=== PATIENT | female | born 1985 | race Caucasian/White ===

== ENCOUNTER 2018-02-03 18:18 | Inpatient (IN) | payer OTHER ==
[2018-02-03] MEDS ORDERED: MISOPROSTOL 200 MCG TAB PR PRN (18:27)
[2018-02-03] MEDS ORDERED: IBUPROFEN 600 MG TAB PO PRN (18:27)
[2018-02-03] MEDS ORDERED: OXYTOCIN/RINGERS LACTATE 1,000 ML IV PRN (18:27)
[2018-02-03] MEDS ORDERED: TERBUTALINE SULFATE 1 MG/ML VIAL IV PRN (18:27)
[2018-02-03] MEDS ORDERED: LR 1,000 ML IV PRN (18:27)
[2018-02-03] MEDS ORDERED: LIDOCAINE 1% 300 MG/30 ML SDV SC PRN (18:27)
[2018-02-03] MEDS ORDERED: EPSOM SALT 454 GM TP PRN (18:27)
[2018-02-03] MEDS ORDERED: OLIVE OIL 118 ML BTL MISC PRN (18:27)
[2018-02-03] MEDS ORDERED: OXYTOCIN 10 UNIT/ML VIAL ONE (19:29)
[2018-02-03] MEDS ORDERED: MISOPROSTOL 200 MCG TAB ONE (19:29)
[2018-02-03] MEDS ORDERED: OLIVE OIL 118 ML BTL ONE (19:29)
[2018-02-03] MEDS ORDERED: AMMONIA AROMATIC 1 EACH AMP IH ONE (19:29)
[2018-02-03] MEDS ORDERED: TERBUTALINE SULFATE 1 MG/ML VIAL ONE (19:29)
[2018-02-03] MEDS ORDERED: LIDOCAINE 1% 300 MG/30 ML SDV ONE (19:29)
--- NOTE | 2018-02-03 19:40 | PDGENHP ---
History and Physical History and Physical: Care: [facility] HPI: Patient is a 32 yo G 1 P 0 @ 40 weeks that presents to L&D with complaints of uterine contractions since yesterday getting much stronger this evening at 1700 EDC: 02-03-2018 which is based on LMP: 04-29-17 which is known and consistent with Ultrasound at 8 weeks. Her has been uncomplicated Review of Systems: Constitutional: Denies any fever, chills, or fatigue HEENT: denies any visual changes, difficulty swallowing, hearing loss Cardiovascular: Denies any chest pain, palpitations, leg swelling Respiratory: denies any cough, wheezing, or shortness of breathe GI: Denies any nausea, vomiting, diarrhea, constipation : denies any dysuria, urgency, frequency, vaginal bleeding Musculoskeletal: denies any muscle or bone pain Skin: denies any rashes Neuro: denies any headache, seizures, lightheadedness, dizziness, or loss of consciousness Psychiatric: denies any depression, anxiety, or SI/HI thoughts HISTORY: Previous OB history: none Past medical history: noncontributory Past surgical history: wisdom teeth Social: Denies any alcohol, tobacco, or drug use. Family history: Not relevant Medications: PNV Allergies (list reaction): NKDA LABS: Rh:O+ ABS: Neg Rubella: Immune HbsAg: NR HIV: NR VDRL: NR 1hr: WNL GC: Neg Chlamydia: Neg Pap: Normal GBS: Neg BMI: (prepreg)27 PHYSICAL EXAM: Constitutional: WN, A&Ox3 HEENT: normocephalic atraumatic, supple Skin: Warm, dry, intact Heart: RRR, no murmur Chest: CTA-B Abdomen: Soft, nontender, gravid SVE: 6/100/-2; BBOW Extremities: +1 edema, negative homans sign Neuro: grossly normal Psych: normal affect assessment: FHT baseline 150's +accels, no decels, moderate variability Contractions: q 3 to 5 minutes Assessment: 1) 32yo G 1 P 0 with IUP@ 40 2) active labor 3) GBS neg 4) Cat 1 FHR tracing Plan: 1) Admit to L&D 2) Expectant management Today's visit was approximately ____ min, of which >50% of visit ___ min, was spent face to face with pt on direct counseling/coordination of care.
[2018-02-03 20:00] LABS: PLATELET COUNT 203 10^3/uL (150-400)
--- NOTE | 2018-02-03 23:22 | OBPROG ---
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 Requesting exam Objective: 02/03/18 19:50 Patient ABO/Rh O POSITIVE 02/03/18 19:50 - SVE Dilation (cm): 8 (BBOW) Effacement (%): 100 Station: -2 - Contraction Pattern Assessment Current Contraction Pattern: Regular Oxytocin Orders Assessment - Pre-Induction/Augmentation Assessment Gestational Age: 40 week(s) and 0 day(s) ICD10 Worksheet Patient Problems: Problems Problem Status Onset Acute - ICD10 Problem Qualifiers (1)
--- NOTE | 2018-02-03 23:44 | OBPROG ---
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 Requesting exam Objective: 02/03/18 19:50 Patient ABO/Rh O POSITIVE 02/03/18 19:50 - Contraction Pattern Assessment Current Contraction Pattern: Regular Oxytocin Orders Assessment - Pre-Induction/Augmentation Assessment Gestational Age: 40 week(s) and 0 day(s) ICD10 Worksheet Patient Problems: Problems Problem Status Onset Acute - ICD10 Problem Qualifiers (1)
--- NOTE | 2018-02-03 23:48 | OBPROG ---
Labor Progress Note Assessment/Plan: Assessment: Plan: 02/03/18 23:19 Active labor progressing Feeling discouraged and exhausted FHT's 140's; no decels P: Offered AROM; discussed risks versus benefits specifically applying pressure to the cervix to speed up dilatation; Reassured that labor is moving along normally Pt discussing with her family and center medical and lab director and will let us know if she would like proceed to AROM 02/03/18 23:47 AROM, copious clear fluid returned Cervix closed to 5 after AROM P) Anticipate with vertex now applied to cervix, labor will progress more efficiently. Encouraging position changes to assist with rotation. Subjective/Intrapartum Course: 02/03/18 23:18 Tired and feeling discouraged. Requesting exam 02/03/18 23:45 Pt consents to AROM Objective: 02/03/18 19:50 Patient ABO/Rh O POSITIVE 02/03/18 19:50 Cx was 8/100/-1 station; BBOW. After AROM, copious amounts of clear fluid returned. Vertex found to be in a LOT position. With contraction, vertex moved down and applied nicely to the cervix. Cervix closed 5/100/-1 station. - SVE Membranes: AROM Amniotic Fluid Color: Clear - Contraction Pattern Assessment Current Contraction Pattern: Regular - Procedures Non-surgical Procedures: Amniotomy Oxytocin Orders Assessment - Pre-Induction/Augmentation Assessment Gestational Age: 40 week(s) and 0 day(s) ICD10 Worksheet Patient Problems: Problems Problem Status Onset Acute - ICD10 Problem Qualifiers (1)
--- NOTE | 2018-02-04 04:38 | OBDEL ---
Info Type: Vaginal Presentation at Delivery: Vertex (compound hand presentation) L&D Analgesia/Anesthesia Type: Nitrous GBS+: No - Hospital Course Intrapartum: 02/03/18 23:18 Tired and feeling discouraged. Requesting exam 02/03/18 23:45 Pt consents to AROM Indications for Delivery: Spontaneous Labor Vaginal Delivery - Delivery Provider Delivery Physician/CNM: Janelle Morel - Labor and Delivery Onset of Contractions Date: 02/03/18 Onset of Contractions Time: 17:00 Onset of Contractions Type: Spontaneous Rupture of Membranes Date: 02/03/18 Rupture of Membranes Time: 23:37 Rupture of Membranes Type: Artificial Amniotic Fluid Color: Clear Dilation Complete Date: 02/04/18 Dilation Complete Time: 03:17 Placenta Delivery Date: 02/04/18 Placenta Delivery Time: 04:06 Total Hours of Labor: 11 Non-surgical Procedures: Amniotomy Laceration: 1st Degree (right vaginal 1st degree just inside introitus; repaired with running stitch to approximate) Repair: 3-0, Vicryl Vaginal Sponge Count Correct: Yes Vaginal Needle Count Correct: Yes Vaginal Sweep Performed: Yes EBL: 300 Delivery Events: Other (Specify) (compound hand presentation) [place] Data JONAS: 02/03/18 Gestational Age: 40 week(s) and 1 day(s) Jolly Delivery Date: 02/04/18 Delivery Time: 03:56 Sex of Infant: Female Score (1 Min): 8 Score (5 Min): 9 ICD10 Worksheet Patient Problems: Problems Problem Status Onset Encounter for full-term uncomplicated delivery Acute Acute - ICD10 Problem Qualifiers (1) (2) Encounter for full-term uncomplicated delivery
[2018-02-04] MEDS: DOCUSATE SODIUM 100 MG CAP PO PRN ×2 (10:42→22:42)
[2018-02-04] MEDS: IBUPROFEN 600 MG TAB PO SCH ×3 (10:42→22:42)
[2018-02-04] MEDS: ACETAMINOPHEN 325 MG TAB PO SCH ×2 (11:08→19:08)
[2018-02-05] MEDS: ACETAMINOPHEN 325 MG TAB PO SCH ×5 (01:00→22:15)
[2018-02-05] MEDS: IBUPROFEN 600 MG TAB PO SCH ×3 (07:47→21:47)
[2018-02-05] MEDS: DOCUSATE SODIUM 100 MG CAP PO PRN ×2 (07:47→21:48)
--- NOTE | 2018-02-05 11:42 | OBPP ---
Progress Note Assessment/Plan: Assessment: 1. 2. PP day 1 3. Breast feeding difficulty Plan: 1. D/C home tomorrow 2. support. 02/05/18 11:39 Subjective/ Course: 02/05/18 11:40 VSS, ambulating in halls, bowel movement today. Breast feeding with assistance. Objective: 02/03/18 19:50 Patient ABO/Rh O POSITIVE 02/03/18 19:50 Temp Pulse Resp BP Pulse Ox 36.2 C 62 16 102/65 95 02/05/18 08:00 02/05/18 08:00 02/05/18 08:00 02/05/18 08:00 02/05/18 08:00 VSS Uterine Position/Fundal Height: At Umbilicus Uterine Tone: Firm Physical Exam - Physical Exam Abdomen: non-tender Extremities: non-tender, No calf tenderness, No swelling, No Dario's sign Neuro/Psych: alert, normal mood/affect, oriented x 3
[2018-02-06] MEDS: IBUPROFEN 600 MG TAB PO SCH ×2 (04:12→10:45)
[2018-02-06] MEDS: ACETAMINOPHEN 325 MG TAB PO SCH ×2 (04:15→10:49)
--- NOTE | 2018-02-06 11:03 | OBGCSDC ---
General Delivery Information - General Info : 1 Para: 1 Abortions: 0 Type: Vaginal L&D Analgesia/Anesthesia Type: Nitrous Admission Date: 02/03/18 Labs: Patient ABO/Rh O POSITIVE 02/03/18 19:50 Hct 39.7 % (38.0-47.0) 02/03/18 19:50 - Hospital Course Intrapartum: 02/03/18 23:18 Tired and feeling discouraged. Requesting exam 02/03/18 23:45 Pt consents to AROM : 02/05/18 11:40 VSS, ambulating in halls, bowel movement today. Breast feeding with assistance. 02/06/18 11:02 S) Pt doing well, reports min pain and bleeding. she is ambulating and voiding without difficulty. She is . She desires discharge home today. O) VSS, afebrile constitutional: WNWF, A&Ox3 HEENT: normocephalic, atraumatic, supple Heart: RRR, No murmur Chest: CTA-B Abdomen: Soft, nontender Uterus: Firm at U-2 Lochia: Minimal rubra Perineum: Intact, healing well Extremities: Trace edema, and negative Daroi's sign Neuro: Grossly normal A) 32 year-old P1 S/P PPD#2 going well P) Discharge home today Continue Pelvic rest x6wks Discussed danger signs (infection, preeclampsia, depression, heavy bleeding, etc) RTO in 2/4/6 weeks Vaginal - Delivery Provider Delivery Physician/CNM: Janelle Morel - Diagnosis Labor: Spontaneous Rupture of Membranes Type: Artificial Amniotic Fluid Color: Clear Laceration: 1st Degree (right vaginal 1st degree just inside introitus; repaired with running stitch to approximate) Repair: 3-0, Vicryl Delivery Events: Other (Specify) (compound hand presentation) - Procedures Non-surgical Procedures: Amniotomy - Delivery Non-surgical Procedures: Amniotomy EBL: 300 Data JONAS: 02/03/18 Gestational Age: 40 week(s) and 3 day(s) Jolly Delivery Date: 02/04/18 Delivery Time: 03:56 Sex of Infant: Female [place] Weight (gm): 3358 g Score (1 Min): 8 Score (5 Min): 9 Discharge Information - Discharge Information Prescriptions: Docusate Sodium [Colace 100 MG (*)] 100 mg PO BID PRN #60 cap PRN Reason: Constipation Ibuprofen [Motrin (*)] 600 mg PO Q6H #40 tab Condition: Good
[2018-02-06 11:31] VITALS: BP 106/65
== END 2018-02-06 14:15 | disposition home or self-care (01) | DRG 807 ==
LOC: FLD 18:18 → OBSVTOIN 18:28 → FOB 02-04 06:41
PROVIDERS: ADMIT Advanced Practice Midwife; ATTEND Obstetrics & Gynecology
PROC: 10907ZC Drainage of Amniotic Fluid, Therapeutic from Products of Conception, Via Natural or Artificial Opening (ICD-10-PCS; 2018-02-03)
PROC: 10E0XZZ Delivery of Products of Conception, External Approach (ICD-10-PCS; principal; 2018-02-04)
PROC: 0WQNXZZ Repair Female Perineum, External Approach (ICD-10-PCS; principal; 2018-02-04)
DX: O32.6XX0 Maternal care for compound presentation, not applicable or unspecified (principal); O70.0 First degree perineal laceration during delivery; Z3A.40 40 weeks gestation of pregnancy; Z37.0 Single live birth
CPT/HCPCS: J2590; J3105

== ENCOUNTER → 2018-04-26 | Outpatient (CLI) | payer OTHER | LOC: FLACT 10:13 ==